=== PATIENT | female | born 1940 | race Caucasian/White ===

== ENCOUNTER 2020-06-11 11:26 | Emergency (ER) | payer MEDICARE, BC ==
--- NOTE | 2020-06-11 12:21 | EDM.PDOC ---
ED HPI GENERAL MEDICAL PROBLEM - General Chief Complaint: Abdominal Pain Stated Complaint: CONSTIPATION OR DIARRHEA Time Seen by Provider: 06/11/20 12:16 Source of Information: Reports: Patient, Family (spouse) History Limitations: Reports: No Limitations - History of Present Illness INITIAL COMMENTS - FREE TEXT/NARRATIVE: 79-year-old female who is traveling from [place] with her presents to the ED with a history of no good bowel movement for about 10 days. She has been having intermittent diarrhea. She denies being on any antibiotics in the last 3 to 4 weeks. She was instructed to take Imodium right ear by a provider elsewhere which may have aggravated the situation. She tried a Fleet enema at home and this failed most of because she could not retain it. She is getting intermittent lower abdominal cramping pain and some rectal pressure discomfort without bleeding. Previous abdominal surgeries that of a cholecystectomy done laparoscopically appendectomy and total abdominal hysterectomy and BSO. She is not sure she is passing any flatus per rectum. She feels bloated and distended. No fever chills. She has loss of appetite. She can walk normal with no pain and no pain and riding in the vehicle. Currently mostly having loose watery stool per rectum when she has to sit on the toilet. Onset: Gradual Onset Date: 06/02/20 Duration: Day(s): (No solid good bowel movement for 10 days since she left home in [place].), Getting Worse Location: Reports: Abdomen (Diffuse lower abdominal pressure discomfort mostly suprapubically and rectally. Mildly bloated and distended.), Other Quality: Reports: Other (Bloat and distention.) Severity: Mild Improves with: Reports: None Worsens with: Reports: Eating. Denies: None, Breathing, Cold Therapy, Heat Therapy, Immobilization, Medication, Rest, Movement Context: Denies: Activity, Exercise, Trauma, Other Associated Symptoms: Reports: No Other Symptoms, Loss of Appetite. 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[employer]ER: Reports: Other (see below) (Stopped this 2 days ago) - Related Data Allergies Allergy/AdvReac Type Severity Reaction Status Date / Time No Known Allergies Allergy Verified 06/11/20 11:56 Home Meds: Home Meds Ascorbic Acid [Vitamin C] 500 mg PO DAILY 06/11/20 [History] Aspirin [Halfprin] 81 mg PO DAILY 06/11/20 [History] Atenolol/Chlorthalidone [Atenolol-Chlorthalidone 100-25] 25 - 100 mg PO DAILY 06/11/20 [History] Calcium Carbonate [Calcium] 600 mg PO DAILY 06/11/20 [History] Latanoprost/Pf [Latanoprost 0.005% Eye Drop] 1 drop EYEBOTH BEDTIME 06/11/20 [History] Loratadine [Claritin] 10 mg PO DAILY 06/11/20 [History] Losartan [Cozaar] 100 mg PO DAILY 06/11/20 [History] Montelukast [Singulair] 10 mg PO DAILY 06/11/20 [History] Multivitamin [Multivitamins] 1 tab PO DAILY 06/11/20 [History] Omeprazole 40 mg PO DAILY 06/11/20 [History] Potassium Chloride 10 meq PO DAILY 06/11/20 [History] Topiramate 50 mg PO DAILY 06/11/20 [History] Vitamin E 400 intnl unit PO DAILY 06/11/20 [History] timoloL maleate [Timoptic 0.5% Ophth Soln] 1 drop EYELF BID 06/11/20 [History] Past Medical History HEENT History: Reports: Glaucoma Cardiovascular History: Reports: Hypertension Gastrointestinal History: Reports: GERD Musculoskeletal History: Reports: Arthritis - Past Surgical History GI Surgical History: Reports: Appendectomy, Cholecystectomy (Laparoscopic) Female Surgical History: Reports: Hysterectomy, Salpingo-Oophorectomy Social & Family History - Family History Family Medical History: Noncontributory - Tobacco Use Smoking Status *Q: Former Smoker Used Tobacco, but Quit: Yes Month/Year Tobacco Last Used: 04/1980 - Caffeine Use Caffeine Use: Reports: None - Recreational Drug Use Recreational Drug Use: No - Living Situation & Occupation Living situation: Reports: Occupation: Retired ED ROS GENERAL - Review of Systems Review Of Systems: See Below Constitutional: Reports: Fatigue, Decreased Appetite. Denies: Fever, Chills, Weight Loss HEENT: Reports: Glasses Respiratory: Reports: No Symptoms Cardiovascular: Reports: No Symptoms Endocrine: Reports: No Symptoms GI/Abdominal: Reports: Abdominal Pain (Treatment lower abdominal cramping discomfort.), Constipation, Diarrhea (Good bowel movement reported for at least 10 days's diarrhea stool off and on for the last 3 days.) : Reports: Frequency. Denies: Incontinence Musculoskeletal: Reports: No Symptoms Skin: Reports: No Symptoms Neurological: Reports: No Symptoms Psychiatric: Reports: No Symptoms Hematologic/Lymphatic: Reports: No Symptoms Immunologic: Reports: No Symptoms ED EXAM, GI/ABD - Physical Exam Exam: See Below Exam Limited By: No Limitations General Appearance: Alert, WD/WN, Anxious, Mild Distress, Other (Temperature is 36.8 pulse is 70 and sinus respiratory is 18 sats are 100% on room air BP 156/67.) Eyes: Bilateral: Normal Appearance (No blepharal pallor or scleral icterus.) Throat/Mouth: Normal Inspection, Normal Lips, Normal Oropharynx Respiratory/Chest: No Respiratory Distress, Lungs Clear, Normal Breath Sounds, No Accessory Muscle Use, Chest Non-Tender Cardiovascular: Normal Peripheral Pulses, Regular Rate, Rhythm, No Edema, No Gallop, No Murmur, No Rub GI/Abdominal Exam: Soft, Non-Tender, No Organomegaly (Minimally distended and slightly tympanitic to percussion throughout.), Distended, Abnormal Bowel Sounds (Bowel sounds are hyperactive in all 4 quadrants.). No: Guarding, Rigid, Tender Back Exam: Normal Inspection, Full Range of Motion. No: CVA Tenderness (L), CVA Tenderness (R) Extremities: Normal Inspection, Normal Range of Motion, Non-Tender, No Pedal Edema Neurological: Alert, Oriented, CN II-XII Intact, Normal Cognition Psychiatric: Anxious (Mildly anxious.) Skin Exam: Warm, Dry, Intact, Normal Color, No Rash Course - Vital Signs Last Recorded V/S: Last Vital Signs Temp 36.8 C 06/11/20 11:50 Pulse 70 06/11/20 11:50 Resp 18 06/11/20 11:50 BP 156/67 H 06/11/20 11:50 Pulse Ox 100 06/11/20 11:50 - Orders/Labs/Meds Orders: Active Orders 24 hr Category Date Time Status Enema [RC] ASDIRECTED Care 06/11/20 12:46 Active Abdomen 1V Flat [CR] Stat Exams 06/11/20 12:16 Taken Magnesium Citrate [Citrate of Magnesia] Med 06/11/20 14:18 Once 150 ml PO ONETIME ONE Meds: Medications Discontinued Medications Generic Name Dose Route Start Last Admin Trade Name Freq PRN Reason Stop Dose Admin Lidocaine HCl 10 ml 06/11/20 12:48 06/11/20 13:10 Xylocaine 2% Jelly MUCMEM 06/11/20 12:49 10 ml ONETIME ONE Administration - Radiology Interpretation Free Text/Narrative:: 79-year-old female presents to the ED with a history of no good bowel movement for the last 10 days since leaving home in [place] and traveling. She states she is currently having intermittent diarrhea stool. She did have an x-ray in the clinic 3 days ago and was told she had air in her transverse colon and a lot of stool in the rectal vault. She was given a Fleet enema to do at home but her reports this failed miserably as she could not retain the enema. She presents this morning with diffuse lower abdominal pressure discomfort. She is losing her appetite. No associated fever chills or nausea or vomiting. Lamination reveals very active bowel sounds in all 4 quadrants. Minimally distended and tympanitic to percussion. No clinical evidence of a bowel obstruction. Benign abdominal exam . Plan KUB to be done. - Re-Assessments/Exams Free Text/Narrative Re-Assessment/Exam: 06/11/20 12:45 KUB has been completed. It does reveal scattered bowel gas throughout the small bowel with a minimally dilated loop of left upper quadrant or mid abdomen. No air-fluid levels to suggest obstruction. There appears to be stool in the rectal vault. There is moderate degenerative arthritic changes in both hips particularly on the right side. Plan will proceed with a soapsuds enema. 06/11/20 13:53 so far return has just been colored water. 06/11/20 14:19 return from the soapsuds enema was mostly colored water. No formed stool. Will discharge her home to take 5 ounces of magnesium citrate by mouth this afternoon to provide bowel cleanse. After this she will take MiraLAX powder 17 g once daily to prevent constipation. Departure - Departure Time of Disposition: 14:20 Disposition: Home, Self-Care 01 Condition: Fair Clinical Impression: Constipation by delayed colonic transit - Discharge Information *PRESCRIPTION DRUG MONITORING PROGRAM REVIEWED*: Not Applicable *COPY OF PRESCRIPTION DRUG MONITORING REPORT IN PATIENT FANNY: Not Applicable Referrals: PCP,Not In Area [Primary Care Provider] - Forms: ED Department Discharge Additional Instructions: Evaluation in the emergency room today in regards to history of no good bowel movement for about 10 days while traveling. An x-ray of the abdomen was performed and reveals only a stool plug in the rectal vault which is contributing to bypass of loose stool around this causing diarrhea. Treatment in the ED was a soapsuds enema to provide softening of the stool plug and allow you to pass the plug. Ever this did not result in passage of any formed stool only colored water. Therefore suggest treatment with magnesium citrate or Citroma 5 ounces mixed with 5 ounces of juice of choice taken by mouth once this afternoon. This will usually provide bowel cleanse within an hour to 2 hours. Treatment now should be picking up some MiraLAX powder which is [id number] in [facility] or any pharmacy and taking 1 scoop every single day while away from home to ensure that constipation does not recur. Occasionally some patients will require 2 scoops on 6 separate times in the day to prevent constipation. Sepsis Event Note (ED) - Evaluation Sepsis Screening Result: No Definite Risk - Focused Exam Vital Signs: Vital Signs Temp Pulse Resp BP Pulse Ox 06/11/20 11:50 36.8 C 70 18 156/67 H 100 - My Orders Last 24 Hours: My Active Orders 06/11/20 12:16 Abdomen 1V Flat [CR] Stat 06/11/20 12:46 Enema [RC] ASDIRECTED 06/11/20 14:18 Magnesium Citrate [Citrate of Magnesia] 150 ml PO ONETIME ONE - Assessment/Plan Last 24 Hours: My Active Orders 06/11/20 12:16 Abdomen 1V Flat [CR] Stat 06/11/20 12:46 Enema [RC] ASDIRECTED 06/11/20 14:18 Magnesium Citrate [Citrate of Magnesia] 150 ml PO ONETIME ONE
[2020-06-11] MEDS ORDERED: Lidocaine 2% Jelly 10 ML Urojet MUCMEM ONE (12:48)
[2020-06-11] MEDS ORDERED: Magnesium Citrate Solution 296 ML Bottle PO ONE (14:18)
--- NOTE | 2020-06-12 12:28 | CR ---
Abdomen: Supine view of the abdomen was obtained. Comparison: No prior abdominal x-ray. Surgical clips are seen from prior cholecystectomy. Calcifications are seen within the pelvis which are compatible with phleboliths. Minimal scoliosis is noted. Bowel gas pattern appears normal. Impression: 1. Findings as described above. 2. Nothing acute is identified on supine abdominal x-ray. Diagnostic code #2 This report was dictated in MDT
== END 2020-06-11 15:00 | disposition home or self-care (01) ==
LOC: JD.ED 11:26
DX: K59.01 Slow transit constipation (principal); I10 Essential (primary) hypertension; K21.9 Gastro-esophageal reflux disease without esophagitis; M19.90 Unspecified osteoarthritis, unspecified site; Z79.82 Long term (current) use of aspirin; Z79.899 Other long term (current) drug therapy; Z87.891 Personal history of nicotine dependence
CPT/HCPCS: 74018; 99283; A9270

== ENCOUNTER 2020-06-12 10:06 | Emergency (ER) | payer MEDICARE, BC ==
[2020-06-12] MEDS ORDERED: Sodium Chloride 0.9% 1,000 ML IV SCH (10:45)
--- NOTE | 2020-06-12 10:50 | EDM.PDOC ---
ED HPI GENERAL MEDICAL PROBLEM - General Chief Complaint: Gastrointestinal Problem Stated Complaint: CONSTIPATION NOT BETTER Time Seen by Provider: 06/12/20 10:17 Source of Information: Reports: Patient, Family () History Limitations: Reports: No Limitations - History of Present Illness INITIAL COMMENTS - FREE TEXT/NARRATIVE: Mrs. Barillas is a very pleasant 79-year-old woman who is visiting this area with her from [place], who now presents the ED with a complaint of constipation. The patient states that she developed watery diarrhea on 06/02/2020. She was seen at the [facility] on 06/06/2020, where blood work was performed, showing no significant irregularities. She was instructed to take Imodium. She then developed constipation, therefore was seen back in the [facility] again on 06/08/2020, where x-rays reportedly demonstrated air in the transverse colon with lots of stool in the rectum. She was instructed to use a fleets enema at home, which she did, without any successful bowel movement. She then presented to our ED yesterday, 06/11/2020 with a complaint of intermittent lower abdominal cramps and rectal pressure. A KUB was performed, which was read by the ED Physician as having stool in the rectum. The patient was given a tap water enema with no stool output. She was discharged home with the recommendation that she drink 5 ounces of magnesium citrate, to be followed by oral MiraLAX. The patient now returns to the ED stating that she drink the magnesium citrate as instructed, but did not have any stool output. She did not take any of the MiraLAX. She has developed nausea and lower abdominal pain. Here in the ED, the patient's initial BP is found to be mildly elevated at 159/82, otherwise, she is hemodynamically stable, afebrile, saturating 100% on room air. Other than her bowel issues, the patient denies recent fever, chills, sore throat, ear pain, nasal or sinus congestion, cough, dyspnea, chest pain, palpit ations, vomiting, urinary symptoms, recent weight gain or weight loss, recent bloody bowel movements or black bowel movements, recent joint aches, headaches, or rashes. The patient's PCP is in [place]. Abdominal Pain Score (Numeric/FACES): 0 - Related Data Allergies Allergy/AdvReac Type Severity Reaction Status Date / Time No Known Allergies Allergy Verified 06/11/20 11:56 Home Meds: Home Meds Ascorbic Acid [Vitamin C] 500 mg PO DAILY 06/11/20 [History] Aspirin [Halfprin] 81 mg PO DAILY 06/11/20 [History] Atenolol/Chlorthalidone [Atenolol-Chlorthalidone 100-25] 25 - 100 mg PO DAILY 06/11/20 [History] Calcium Carbonate [Calcium] 600 mg PO DAILY 06/11/20 [History] Latanoprost/Pf [Latanoprost 0.005% Eye Drop] 1 drop EYEBOTH BEDTIME 06/11/20 [History] Loratadine [Claritin] 10 mg PO DAILY 06/11/20 [History] Losartan [Cozaar] 100 mg PO DAILY 06/11/20 [History] Montelukast [Singulair] 10 mg PO DAILY 06/11/20 [History] Multivitamin [Multivitamins] 1 tab PO DAILY 06/11/20 [History] Omeprazole 40 mg PO DAILY 06/11/20 [History] Potassium Chloride 10 meq PO DAILY 06/11/20 [History] Topiramate 50 mg PO DAILY 06/11/20 [History] Vitamin E 400 intnl unit PO DAILY 06/11/20 [History] timoloL maleate [Timoptic 0.5% Ophth Soln] 1 drop EYELF BID 06/11/20 [History] Past Medical History HEENT History: Reports: Glaucoma Cardiovascular History: Reports: Hypertension, PVD Gastrointestinal History: Reports: GERD Musculoskeletal History: Reports: Arthritis - Past Surgical History HEENT Surgical History: Reports: Adenoidectomy, Cataract Surgery (bilateral), Oral Surgery (wisdom teeth extraction), Tonsillectomy Cardiovascular Surgical History: Reports: Carotid Endarterectomy (left) GI Surgical History: Reports: Appendectomy, Cholecystectomy (around 2009), Colonoscopy (x 5), EGD (x 1) Female Surgical History: Reports: Hysterectomy (complete) Social & Family History - Family History Family Medical History: Noncontributory - Tobacco Use Smoking Status *Q: Former Smoker Years of Tobacco use: 24 Packs/Tins Daily: 1 Month/Year Tobacco Last Used: Quit 1979 Second Hand Smoke Exposure: No - Caffeine Use Caffeine Use: Reports: None - Alcohol Use Alcohol Use History: No - Recreational Drug Use Recreational Drug Use: No - Living Situation & Occupation Living situation: Reports: , with Spouse Occupation: Retired ED ROS GENERAL - Review of Systems Review Of Systems: Comprehensive ROS is negative, except as noted in HPI. ED EXAM, GI/ABD - Physical Exam Exam: See Below Exam Limited By: No Limitations General Appearance: Alert, WD/WN, No Apparent Distress Eyes: Bilateral: Normal Appearance, EOMI Ears: Normal External Exam, Hearing Grossly Normal Nose: Normal Inspection Throat/Mouth: Normal Inspection, Normal Lips, Normal Voice, No Airway Compromise Head: Atraumatic, Normocephalic Neck: Normal Inspection, Full Range of Motion Respiratory/Chest: No Respiratory Distress, Lungs Clear, Normal Breath Sounds, No Accessory Muscle Use Cardiovascular: Normal Peripheral Pulses, Regular Rate, Rhythm, No Edema, No Gallop, No JVD, No Murmur, No Rub GI/Abdominal Exam: Normal Bowel Sounds, Soft, No Organomegaly, No Distention, No Abnormal Bruit, No Mass, Tender (Mild, primarily to the left lower quadrant, with no significant tenderness elsewhere) Rectal (Female) Exam: Deferred Back Exam: Normal Inspection, Full Range of Motion, NT Extremities: Normal Inspection, Normal Range of Motion, No Pedal Edema, Normal Capillary Refill Neurological: Alert, Oriented, Normal Cognition, No Motor/Sensory Deficits Psychiatric: Normal Affect Skin Exam: Warm, Dry, Intact, Normal Color, No Rash Course - Vital Signs Last Recorded V/S: Last Vital Signs Temp 36.2 C 06/12/20 10:20 Pulse 72 06/12/20 10:20 Resp 16 06/12/20 10:20 BP 159/82 H 06/12/20 10:20 Pulse Ox 100 06/12/20 10:20 - Orders/Labs/Meds Labs: Laboratory Tests 06/12/20 06/12/20 06/12/20 Range/Units 11:00 11:20 11:20 WBC 4.42 (3.98-10.04) K/mm3 RBC 4.10 (3.98-5.22) M/mm3 Hgb 13.6 (11.2-15.7) gm/dl Hct 38.7 (34.1-44.9) % MCV 94.4 (79.4-94.8) fl MCH 33.2 H (25.6-32.2) pg MCHC 35.1 (32.2-35.5) g/dl RDW Std Deviation 42.9 (36.4-46.3) fL Plt Count 235 (182-369) K/mm3 MPV 9.8 (9.4-12.3) fl Neutrophils % (Manual) 59 (40-60) % Band Neutrophils % 0 (0-10) % Lymphocytes % (Manual) 28 (20-40) % Immat Monocytes % (Man) 0 Monocytes % (Manual) 8 (2-10) % Eosinophils % (Manual) 4 (0.7-5.8) % Basophils % (Manual) 1 (0.1-1.2) Metamyelocytes % 0 Myelocytes % 0 Promyelocytes % 0 Blast Cells % 0 Plasma Cell % (Manual) 0 Nucleated RBCs 0.0 % Platelet Estimate Adequate RBC Morph Comment Normal Sodium 134 L (136-145) mEq/L Potassium 3.6 (3.5-5.1) mEq/L Chloride 99 (98-107) mEq/L Carbon Dioxide 23 (21-32) mEq/L Anion Gap 15.6 H (5-15) BUN 19 H (7-18) mg/dL Creatinine 1.2 H (0.55-1.02) mg/dL Est Cr Clr Drug Dosing 32.29 mL/min Estimated GFR (MDRD) 43 (>60) mL/min BUN/Creatinine Ratio 15.8 (14-18) Glucose 106 (83-115) mg/dL Calcium 9.1 (8.5-10.1) mg/dL Total Bilirubin 0.6 (0.2-1.0) mg/dL AST 23 (15-37) U/L ALT 32 (14-59) U/L Alkaline Phosphatase 74 (46-116) U/L Total Protein 7.8 (6.4-8.2) g/dl Albumin 4.0 (3.4-5.0) g/dl Globulin 3.8 gm/dL Albumin/Globulin Ratio 1.1 (1-2) Urine Color Yellow (Yellow) Urine Appearance Clear (Clear) Urine pH 5.0 (5.0-8.0) Ur Specific [place] 1.015 (1.005-1.030) Urine Protein Negative (Negative) Urine Glucose (UA) Negative (Negative) Urine Ketones Negative (Negative) Urine Occult Blood Trace-intact H (Negative) Urine Nitrite Negative (Negative) Urine Bilirubin Negative (Negative) Urine Urobilinogen 0.2 (0.2-1.0) Ur Leukocyte Esterase 1+ H (Negative) Urine RBC 0-5 (0-5) /hpf Urine WBC 0-5 (0-5) /hpf Ur Squamous Epith Cells 0-5 (0-5) /hpf Urine Bacteria Few (FEW) /hpf Urine Mucus Rare (FEW) /hpf Meds: Medications Discontinued Medications Generic Name Dose Route Start Last Admin Trade Name Sally PRN Reason Stop Dose Admin Diatrizoate Meglum/Diatrizoate Sod 90 ml 06/12/20 12:05 06/12/20 12:37 Gastrografin 37% PO 06/12/20 12:06 90 ml ONETIME ONE Administration Sodium Chloride 1,000 mls @ 150 mls/hr 06/12/20 10:45 06/12/20 11:22 Normal Saline IV 150 mls/hr ASDIRECTED SERJIO Administration Iopamidol 100 ml 06/12/20 12:05 06/12/20 12:37 Isovue-300 (61%) IVPUSH 06/12/20 12:06 100 ml ONETIME ONE Administration Sodium Chloride 10 ml 06/12/20 12:05 06/12/20 12:37 Saline Flush FLUSH 06/12/20 12:06 10 ml ONETIME ONE Administration - Re-Assessments/Exams Free Text/Narrative Re-Assessment/Exam: 06/12/20 10:47 As above, the patient initially had watery diarrhea, which switched to constipation after she began taking Imodium on 06/06/2020, and was not resolved after taking a fleets enema on 06/08/2020. She was seen in this ED yesterday, 06/12/2020, and did not have any stool output with a tap water enema, nor after drinking 5 ounces of magnesium citrate last night. Instead of simply repeating an abdominal x-ray, I would prefer to make sure that there is nothing more serious going on, such as an anatomic blockage, therefore I am recommending blood work, a urinalysis, and a CT of her abdomen and pelvis with oral and IV contrast. The patient is currently changing into a gown. I will return to her room in a few minutes to perform a rectal exam. 06/12/20 12:19 No stool was felt on rectal examination. The patient's CBC is unremarkable. Her CMP is remarkable for sodium slightly depressed at 134, and anion gap slightly elevated at 15.6, with a bicarbonate normal at 23, and a BUN/Cr elevated at 19/1.2, with the remainder of her CMP being unremarkable. Her urinalysis is remarkable for trace occult blood with 0-5 RBCs, and 1+ leukocyte Estrace with 0-5 WBCs, with the remainder of her urinalysis being unremarkable. 06/12/20 13:05 CT of the abdomen and pelvis with oral and IV contrast is read by Dr. Blum as: 1. Air-fluid level within the rectum with fluid seen within the left colon and sigmoid regions. 2. Other findings as noted above believed to be nonacute. 06/12/20 13:15 Test results discussed with the patient and her . As above, today's work-up is unremarkable, finding only some fluid in her left colon and rectum. The patient tells me that she had a liquid bowel movement during her ER visit. I recommended to the patient that she not drink any more of the magnesium citrate, that she resume her usual diet, and if she is still symptomatic by the time she returns home to [place], to follow-up with her PCP to arrange for a colonoscopy. The patient expressed understanding. Departure - Departure Time of Disposition: 13:17 Disposition: Home, Self-Care 01 Condition: Good Clinical Impression: Rectal urgency - Discharge Information *PRESCRIPTION DRUG MONITORING PROGRAM REVIEWED*: Not Applicable *COPY OF PRESCRIPTION DRUG MONITORING REPORT IN PATIENT FANNY: Not Applicable Referrals: PCP,Not In Area [Primary Care Provider] - Forms: ED Department Discharge Additional Instructions: You were seen in the emergency room for the sensation of being constipated. Work-up in the ER included blood work, a urinalysis, and a CT scan of your abdomen and pelvis with oral and IV contrast. Your entire work-up was unremarkable. While you have some fluid in your lower colon, you are not constipated. We recommend that you resume your usual diet, and, if you are still having symptoms after you return home to [place], that you follow-up with your PCP to arrange for colonoscopy. If any other problems, please do not hesitate to return to the ER. Sepsis Event Note (ED) - Evaluation Sepsis Screening Result: No Definite Risk - Focused Exam Vital Signs: Vital Signs Temp Pulse Resp BP Pulse Ox 06/12/20 10:20 36.2 C 72 16 159/82 H 100
[2020-06-12] MEDS ORDERED: Sodium Chloride 0.9% 10 ML Syringe FLUSH ONE (12:05)
[2020-06-12] MEDS ORDERED: Iopamidol 612 MG/ML 100 ML Bottle IVPUSH ONE (12:05)
[2020-06-12] MEDS ORDERED: Diatrizoate Meglumine/Diatrizoate Sodium 37% 120 ML Bottle PO ONE (12:05)
--- NOTE | 2020-06-12 13:00 | CT ---
CT abdomen and pelvis Technique: Multiple axial sections were obtained from slightly below the top of the liver inferiorly through the pubic symphysis. Intravenous contrast was utilized. Oral contrast has also been given. Delayed images were obtained through the bladder. Reconstructed coronal and sagittal images were obtained. Comparison: No prior abdominal or pelvic CT exam, previous abdominal x-ray performed one day earlier. Findings: Visualized lung bases show nothing acute. Cyst is noted within the right lobe of the liver. This cyst measures approximately 1.6 cm in size. No additional abnormality is appreciated within the liver. Spleen appears within normal limits. Kidneys show no hydronephrosis or mass. Adrenal glands show no nodule. Pancreas shows no discrete abnormality. Surgical clips are seen from previous cholecystectomy. Aorta shows no aneurysm with atherosclerotic change. No retroperitoneal adenopathy or mesenteric abnormalities are seen. No pelvic mass or adenopathy is seen. Fluid level is noted within the rectum. Fluid is also seen within other portions of the left colon. No bowel wall thickening or inflammatory change is seen around the bowel. Appendix is not visualized with certainty. No free fluid is seen. Impression: 1. Air-fluid level within the rectum with fluid seen within the left colon and sigmoid regions. 2. Other findings as noted above believed to be nonacute. Diagnostic code #3 This report was dictated in MDT
== END 2020-06-12 13:25 | disposition home or self-care (01) ==
LOC: JD.ED 10:06
DX: R15.2 Fecal urgency (principal); I10 Essential (primary) hypertension; K21.9 Gastro-esophageal reflux disease without esophagitis; Z79.82 Long term (current) use of aspirin; Z79.899 Other long term (current) drug therapy; Z87.891 Personal history of nicotine dependence
CPT/HCPCS: 36415; 74177; 80053; 81001; 85007; 85027; 99284; J7030; Q9963; Q9967